=== PATIENT | male | born 1985 | race Two or more races ===

== ENCOUNTER 2018-12-19 13:05 | Emergency (ER) | payer OTHER ==
[~2018-12-19] VITALS: Ht 177.8 cm; Wt 100.7 kg
[2018-12-19 13:11] VITALS: BP 120/65
[2018-12-19] MEDS ORDERED: TDAP [DIPH/PERTUSSIS/TET] 0.5 ML VIAL IM ONE ×2 (13:30→13:37)
[2018-12-19] MEDS ORDERED: HYDROCODONE/APAP 5/325MG 1 EACH TABLET PO ONE (13:30)
[2018-12-19] MEDS ORDERED: HYDROCODONE/APAP 5/325MG 1 EACH TABLET ONE (13:37)
--- NOTE | 2018-12-19 14:07 | NUR ---
wound care provided. covered with band aid. discharge instruction provided
== END 2018-12-19 14:12 | disposition home or self-care (01) ==
LOC: ER 13:15
DX: S61.412A Laceration without foreign body of left hand, initial encounter (principal); F17.200 Nicotine dependence, unspecified, uncomplicated; W26.8XXA Contact with other sharp object(s), not elsewhere classified, initial encounter; Y93.89 Activity, other specified; Y92.89 Other specified places as the place of occurrence of the external cause; Y99.8 Other external cause status
CPT/HCPCS: 73130-TC; 90715